=== PATIENT | male | born 1960 | race Caucasian/White ===

== ENCOUNTER 2022-04-27 12:04 | Emergency (ER) | payer OTHER ==
[2022-04-27 13:11] LABS: BILIRUBIN NEGATIVE (NEGATIVE); BLOOD NEGATIVE Ery/uL (NEGATIVE); CLARITY CLEAR (CLEAR); COLOR YELLOW (YELLOW); GLUCOSE (U) NORMAL (NORMAL); LEUKOCYTES 2+ Leu/uL (NEGATIVE); NITRITE NEGATIVE (NEGATIVE); PROTEIN NEGATIVE (NEGATIVE); SPECIFIC GRAVITY 1.015 (1.001-1.030); UROBILINOGEN 0.2 mg/dL (0.2-1.0)
[2022-04-27 13:24] LABS: SPERM PRESENT
[2022-04-27 13:25] LABS: BACTERIA TRACE
[2022-04-27 13:57] LABS: BASOPHIL 1.4 % (0-2); EOSINOPHIL 1.8 % (0-5); HCT 38.9 % (42.0-52.0); HGB 13.2 g/dl (13.2-18.0); LYMPHOCYTE 24.9 % (15-48); MCHC 33.9 g/dL (32.0-36.0); MCV 100.3 fL (78.0-100.0); MONOCYTE 6.8 % (0-12); MPV 9.2 fL (6.0-9.5); NEUTROPHIL 64.7 % (41-80); NRBC 0; PLT 389 K/uL (150-400); RBC 3.88 M/uL (4.70-6.00); RDW 11.9 % (11.5-14.0); WBC 11.4 K/uL (4.0-10.5)
[2022-04-27 14:05] LABS: ALBUMIN 4.2 g/dL (3.4-5.0); BILIRUBIN - TOTAL 0.4 mg/dL (0.2-1.0); BUN/CREAT RATIO (CALC) 30.9 RATIO; CREATININE 0.97 mg/dL (0.67-1.17); GLOBULIN (CALCULATION) 3.7 g/dL; POTASSIUM 3.9 mmol/L (3.5-5.1); TOTAL PROTEIN 7.9 g/dL (6.4-8.2)
[2022-04-27 15:34] LABS: CORONAVIRUS 2019 SARS-COV-2 NEGATIVE (NEGATIVE); INFLUENZA A NAA NEGATIVE (NEGATIVE)
[2022-04-27] MEDS ORDERED: PROTONIX 40MG T40 MG PO (16:50)
[2022-04-27] MEDS ORDERED: ONDANSETRON HCL4 MG PO (16:50)
== END 2022-04-27 17:25 | disposition home or self-care (01) ==
LOC: FER 12:04
PROVIDERS: Nurse Practitioner Family
DX: K27.4 Chronic or unspecified peptic ulcer, site unspecified, with hemorrhage (principal); N28.89 Other specified disorders of kidney and ureter; R10.84 Generalized abdominal pain; I10 Essential (primary) hypertension; F17.210 Nicotine dependence, cigarettes, uncomplicated; E78.5 Hyperlipidemia, unspecified; Z88.6 Allergy status to analgesic agent; Z88.8 Allergy status to other drugs, medicaments and biological substances; Z20.822 Contact with and (suspected) exposure to COVID-19; Z79.899 Other long term (current) drug therapy
CPT/HCPCS: 36415; 80053; 81001; 82270; 85025; 87088; C9113; J2270; J2405; J7030; Q9967; U0002